=== PATIENT | female | born 2000 | race Caucasian/White ===

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

== ENCOUNTER 2020-01-18 14:16 | Emergency (ER) | payer MEDICAID, OTHER ==
[~2020-01-18] VITALS: Ht 172.7 cm; Wt 77.3 kg
--- NOTE | 2020-01-18 15:50 | NUR ---
patient seen and assessed by the provider
[2020-01-18 15:51] VITALS: BP 141/85
== END 2020-01-18 15:56 | disposition home or self-care (01) ==
LOC: ER 14:18
DX: R51.9 Headache, unspecified (principal); Z20.828 Contact with and (suspected) exposure to other viral communicable diseases; J02.9 Acute pharyngitis, unspecified; Z87.81 Personal history of (healed) traumatic fracture; Z79.899 Other long term (current) drug therapy
CPT/HCPCS: 36415; 87635; 99283